=== PATIENT | male | born 1970 | race Caucasian/White ===

== ENCOUNTER 2022-09-21 17:48 | Emergency (ER) | payer BC ==
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
[2022-09-21 18:02] VITALS: TEMP 98.8
[2022-09-21] MEDS ORDERED: SODIUM CHLORIDE 0.9% 1,000 ML IV STA (19:07)
[2022-09-21] MEDS ORDERED: DICYCLOMINE 10 MG/ML 2 ML AMP IM STA (19:08)
[2022-09-21 20:08] LABS: Basophils # (A) 0.1 k/uL (0-0.2); Basophils % (A) 1 %; Eosinophils # (A) 0.2 k/uL (0-0.7); Eosinophils % (A) 2 %; HCT 46.7 % (39.0-53.0); HGB 15.8 gm/dL (13.0-17.5); Lymphocytes # (A) 2.1 k/uL (1.0-4.8); Lymphocytes % (A) 23 %; MCH 31.3 pg (25.0-35.0); MCHC 33.8 g/dL (31.0-37.0); MCV 92.5 fL (80.0-100.0); Mean Platelet Volume 7.4; Monocytes # (A) 0.6 k/uL (0-1.0); Monocytes % (A) 6 %; Neutrophils # (A) 6.4 k/uL (1.3-7.7); Neutrophils % (A) 68 %; Platelet Count 249 k/uL (150-450); RBC 5.05 m/uL (4.30-5.90); RDW 12.3 % (11.5-15.5); WBC 9.5 k/uL (3.8-10.6)
[2022-09-21 20:14] LABS: Appearance,Urine Clear (Clear); Bilirubin,Urine Negative (Negative); Blood,Urine Negative (Negative); Color,Urine Yellow; Glucose,Urine (UA) Negative (Negative); Ketones,Urine 1+ (Negative); Leukocyte Esterase,Urine Small (Negative); Mucus,Urine Occasional /hpf; Nitrite,Urine Negative (Negative); PH, Urine 5.5 (5.0-8.0); Protein,Urine Trace (Negative); RBC,Urine 3 /hpf (0-5); Specific Gravity,Urine 1.018 (1.001-1.035); Urobilinogen,Urine <2.0 mg/dL (<2.0); WBC,Urine 6 /hpf (0-5)
[2022-09-21 20:19] LABS: ALT 23 U/L (4-49); AST 24 U/L (17-59); African American GFR (CKD) >90 (>60 ml/min/1.73 sqM); Albumin 4.9 g/dL (3.5-5.0); Alkaline Phosphatase 60 U/L (38-126); Amylase 44 U/L (30-110); Anion Gap 14 mmol/L; Blood Urea Nitrogen 15 mg/dL (9-20); Calcium 9.5 mg/dL (8.4-10.2); Carbon Dioxide 21 mmol/L (22-30); Chloride 104 mmol/L (98-107); Glucose 139 mg/dL (74-99); Lipase 85 U/L (23-300); Non-African American GFR(CKD) >90 (>60 ml/min/1.73 sqM); Potassium 3.8 mmol/L (3.5-5.1); Sodium 139 mmol/L (137-145); Total Protein 7.6 g/dL (6.3-8.2)
[2022-09-21 20:27] VITALS: RESP 18
--- NOTE | 2022-09-21 20:30 | CT ---
EXAMINATION TYPE: CT abdomen pelvis w con DATE OF EXAM: 09/21/2022 COMPARISON: 1 HISTORY: abdominal pain, acute, nonlocalized. frequent urination. CT DLP: 750.4 mGycm CONTRAST: CT scan of the abdomen and pelvis is performed without Oral Contrast and with IV Contrast, patient in jected with 100ml mL of Isovue 300. FINDINGS: LUNG BASES-: No visible nodule. No infiltrate. LIVER/GB: No calcified gallstones. No space occupying hepatic lesion. Biliary tree is of normal ca liber. PANCREAS: No inflammation. No distinct mass. SPLEEN: No splenic enlargement. No lesion seen. ADRENALS: No nodule. No thickening. KIDNEYS/BLADDER: 11 mm right UPJ calculus resulting in moderate hydronephrosis. No additional calculi seen. The left kidney is unremarkable. No distinct renal mass. Urinary bladder grossly unremarkable . BOWEL: Normal appendix. Normal bowel caliber. No inflammation. GENITAL ORGANS: No gross abnormality. LYMPH NODES: No greater than 1cm abdominal or pelvic lymph nodes are appreciated. AORTA: No significant abnormality. OSSEOUS STRUCTURES: No significant abnormality is seen. OTHER: No significant additional abnormality is seen. IMPRESSION: 11 mm right UPJ calculus resulting in moderate hydronephrosis.
[2022-09-21] MEDS ORDERED: KETOROLAC 15 MG/ML 1 ML VIAL IVP STA (21:54)
[2022-09-21] MEDS ORDERED: ONDANSETRON 4 MG ODT STARTER PACK 2 TAB BTL PO STA (22:30)
[2022-09-21] MEDS ORDERED: IBUPROFEN 600 MG STARTER PACK 4 TAB BTL PO STA (22:30)
[2022-09-21] MEDS ORDERED: ACET/COD 300 MG/30 MG STARTER PACK 6 TAB BTL PO STA (22:30)
[2022-09-21 22:58] VITALS: BP 141/93; PULSE 88
[2022-09-23 13:11] LABS: Chlamydia trachomatis rRNA Not detected (Not detected); Neisseria gonorrhoeae rRNA Not detected (Not detected)
== END 2022-09-21 22:59 | disposition home or self-care (01) ==
LOC: EC 17:48
DX: N13.2 Hydronephrosis with renal and ureteral calculous obstruction (principal); F12.90 Cannabis use, unspecified, uncomplicated; Z88.0 Allergy status to penicillin; Z87.891 Personal history of nicotine dependence
CPT/HCPCS: 99284 ×2; 96374 ×2; 96361 ×3; 96372 ×2; 36415; 93005; 80053; 87491; 82150; 83605; 83690; 84484; 85025; 81001; 74177; J0500; J1885; S0119; Q9967

== ENCOUNTER → 2022-10-12 | Outpatient (CLI) | payer BC ==
[2022-10-12 20:30] LABS: Basophils # (A) 0.06 X 10*3/uL (0.00-0.10); Basophils % (A) 0.6 %; Eosinophils # (A) 0.12 X 10*3/uL (0.04-0.35); Eosinophils % (A) 1.2 %; HCT 45.2 % (39.6-50.0); HGB 15.1 d/dL (12.0-15.0); Lymphocytes # (A) 2.05 X 10*3/uL (0.90-5.00); Lymphocytes % (A) 21.2 %; MCH 30.8 pg (27.0-32.0); MCHC 33.4 d/dL (32.0-37.0); MCV 92.1 FL (80.0-97.0); Mean Platelet Volume 10.2 FL (9.5-12.2); Monocytes # (A) 0.49 X 10*3/uL (0.20-1.00); Monocytes % (A) 5.1 %; NRBC Per 100 WBC 0 X 10*3/uL (0.00-0.01); Neutrophils # (A) 6.92 X 10*3/uL (1.80-7.70); Neutrophils % (A) 71.5 %; Platelet Count 242 X 10*3/uL (140-440); RBC 4.91 X 10*6/uL (4.40-5.60); RDW 12.2 % (11.5-14.5); WBC 9.68 X 10*3/uL (4.50-10.00)
[2022-10-12 21:08] LABS: BUN/Creat Ratio 16.78 Ratio (12.00-20.00); Blood Urea Nitrogen 15.1 mg/dL (9.0-27.0); Calcium 9.5 mg/dL (8.7-10.3); Carbon Dioxide 21.1 mmol/L (21.6-31.8); Chloride 104 mmol/L (96-109); Glucose 153 mg/dL (70-110); Potassium 4.3 mmol/L (3.5-5.5); Sodium 138 mmol/L (135-145)
== END | disposition home or self-care (01) ==
LOC: LABPAT 13:14
PROVIDERS: ATTEND Urology
DX: Z01.812 Encounter for preprocedural laboratory examination (principal); N20.1 Calculus of ureter; R31.29 Other microscopic hematuria
CPT/HCPCS: 80048; 85025

== ENCOUNTER → 2022-10-19 | Day surgery (SDC) | payer BC ==
[2022-10-14 12:19] VITALS: BMI 24.4
[~2022-10-19] MED LIST: CIPROFLOXACIN/DEXTROSE PMX 400 MG in DEXTROSE/WATER 1 200ML.BAG IVPB PRN; DEXAMETHASONE SOD PHOSPHATE 4 MG/ML 1 ML VIAL IV ONE; HYDROmorphone 0.5 MG/0.5 ML SYRINGE IVP PRN; LACTATED RINGERS 1,000 ML IV SCH; LIDOCAINE 1% (10MG/ML) FOR IV START INTRADERMA PRN; METOCLOPRAMIDE 5 MG/ML 2 ML VIAL IVP PRN; ONDANSETRON 4 MG/2 ML VIAL IVP ONE
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
[2022-10-19 07:48] VITALS: BP 121/68; PULSE 74; RESP 14; TEMP 97.8
--- NOTE | 2022-10-19 08:34 | XR ---
EXAMINATION TYPE: XR KUB DATE OF EXAM: 10/19/2022 HISTORY: Pain Comparison: None.Single KUB is submitted for interpretation. Findings: Right renal calculi: 1.4 cm calculus overlying the mid to lower pole of the right kidney. Right ureteral calculi: None Visualized. Left renal calculi: None Visualized. Left ureteral calculi: None Visualized. Pelvic calcifications: Multiple calculi within the pelvis the largest measuring 7 mm. Is likely the most part reflect phlebolith formation however distal ureteral calculus is difficult to exclude. Bowel gas pattern is unremarkable. No free air. No mass effects. IMPRESSION: 1. As above
--- NOTE | 2022-10-19 09:21 | P.PN ---
Progress Note - Text Progress Note Date: 10/19/22 Patient evaluated prior to scheduled cysto/lithotripsy/indicated procedures due to large kidney stone. Patient noted to have "droop" to left side of face. Reports onset about a week ago and is "improving". Also reports right side cervical pain/cramps as well as new onset bilateral lower extremity numbness/paresthesias. Discussed with patient at length regarding Harerll's Palsy vs CVA/TIA and the need for a neurological consult and workup to rule out any neurological/vascular issues prior to an elective surgical procedure requiring a general anesthetic. Patient states his understanding. Advised to go to ER to begin evaluation process as the patient does not have a primary care doctor he sees regularly. Recently scheduled a visit to a PCP on October 29. Patient states he "will not go to the ER today because he is tired and will go home and rest and follow up with PCP on 10/29/2022". Again advised patient to begin evaluation today with ER and patient refused. Will follow up as indicated. Risks of his decision were discussed at length including possible stroke, possible Harrell's Palsy, possible increased risk of stroke/WA. Patient stated understanding but prefers to defer evaluation until 10/29/2022
== END ==
LOC: OR 06:32
PROVIDERS: ATTEND Urology
DX: N20.1 Calculus of ureter (principal); I51.7 Cardiomegaly; Z53.8 Procedure and treatment not carried out for other reasons; R29.810 Facial weakness; Z87.442 Personal history of urinary calculi; Z98.890 Other specified postprocedural states; Z87.891 Personal history of nicotine dependence; Z88.0 Allergy status to penicillin
CPT/HCPCS: 74018; 52356; J1100; J2405

== ENCOUNTER → 2022-11-04 | Outpatient (CLI) | payer BC ==
[2022-11-04 13:51] LABS: Appearance,Urine Clear (Clear); Bilirubin,Urine Negative (Negative); Blood,Urine Trace (Negative); Color,Urine Yellow; Glucose,Urine (UA) Trace (Negative); Ketones,Urine Negative (Negative); Leukocyte Esterase,Urine Trace (Negative); Mucus,Urine Occasional /hpf; Nitrite,Urine Negative (Negative); PH, Urine 5.5 (5.0-8.0); Protein,Urine Negative (Negative); RBC,Urine 4 /hpf (0-5); Squamous Epithelial Cell,Urine <1 /hpf (0-4); Urobilinogen,Urine <2.0 mg/dL (<2.0); WBC,Urine 10 /hpf (0-5)
[2022-11-04 17:00] LABS: Basophils # (A) 0.05 X 10*3/uL (0.00-0.10); Basophils % (A) 0.7 %; Eosinophils # (A) 0.07 X 10*3/uL (0.04-0.35); Eosinophils % (A) 0.9 %; HCT 43.4 % (39.6-50.0); HGB 14.7 d/dL (13.0-17.0); Lymphocytes # (A) 1.53 X 10*3/uL (0.90-5.00); Lymphocytes % (A) 20.4 %; MCH 30.4 pg (27.0-32.0); MCHC 33.9 d/dL (32.0-37.0); MCV 89.7 FL (80.0-97.0); Mean Platelet Volume 9.6 FL (9.5-12.2); Monocytes # (A) 0.44 X 10*3/uL (0.20-1.00); Monocytes % (A) 5.9 %; NRBC Per 100 WBC 0 X 10*3/uL (0.00-0.01); Neutrophils # (A) 5.38 X 10*3/uL (1.80-7.70); Neutrophils % (A) 71.8 %; Platelet Count 220 X 10*3/uL (140-440); RBC 4.84 X 10*6/uL (4.40-5.60); RDW 12.2 % (11.5-14.5); WBC 7.49 X 10*3/uL (4.50-10.00)
[2022-11-04 20:26] LABS: ALT 14 U/L (10-49); AST 13 U/L (14-35); Albumin 4.8 d/dL (3.8-4.9); Albumin/Globulin Ratio 2.67 Ratio (1.60-3.17); Alkaline Phosphatase 58 U/L (41-126); Blood Urea Nitrogen 15.7 mg/dL (9.0-27.0); Calcium 9.5 mg/dL (8.7-10.3); Carbon Dioxide 20.7 mmol/L (21.6-31.8); Chloride 105 mmol/L (96-109); Chol/HDL Ratio 4.61 Ratio; Globulin 1.8 d/dL (1.6-3.3); Glucose 239 mg/dL (70-110); LDL Cholesterol,Calculated 135.6 mg/dL (0.0-131.0); Magnesium 1.9 mg/dL (1.5-2.4); Potassium 4.2 mmol/L (3.5-5.5); Sodium 139 mmol/L (135-145); Total Bilirubin 0.7 mg/dL (0.3-1.2); Total Protein 6.6 d/dL (6.2-8.2); Uric Acid 4.4 mg/dL (3.7-8.7)
[2022-11-04 21:51] LABS: HSV I IgG Interp POSITIVE; HSV II IgG Interp Negative (Negative)
[2022-11-05 00:02] LABS: Hepatitis A Antibody IgM Nonreactive; Hepatitis B Core IgM Nonreactive; Hepatitis B Surface Antigen Nonreactive; Hepatitis C IgG Antibody Nonreactive
[2022-11-05 13:35] LABS: C. trachomatis,PCR Negative (Negative)
== END | disposition home or self-care (01) ==
LOC: LABWHC1 12:46
PROVIDERS: ATTEND Internal Medicine
DX: Z12.5 Encounter for screening for malignant neoplasm of prostate (principal); Z72.51 High risk heterosexual behavior; R29.810 Facial weakness
CPT/HCPCS: 80061; 80053; 80074; 84443; 82607; 82746; 83735; 84550; 85025; 81001; 86695; 86696; 86618; 87491; 86780; 36415; G0103

== ENCOUNTER → 2022-11-16 | Outpatient (CLI) | payer BC ==
[2022-11-16 14:20] LABS: African American GFR (CKD) >90 (>60 ml/min/1.73 sqM); Blood Urea Nitrogen 13 mg/dL (9-20); Non-African American GFR(CKD) 90 (>60 ml/min/1.73 sqM)
--- NOTE | 2022-11-16 15:35 | CT ---
EXAMINATION TYPE: CT angio head neck CT DLP: 1352.50 mGycm, Automated exposure control for dose reduction was used. DATE OF EXAM: 11/16/2022 3:20 PM COMPARISON: None. CLINICAL INDICATION:Male, 52 years old with history of R29.810; PHH, RT sided face pain and swelling after eating then followed by a rt sided facial droop TECHNIQUE: Axially acquired helical CT angiogram of the head and neck was obtained with contrast util izing 65 cc of Isovue-370 administered intravenously. Images of the head were obtained before adminis tration of contrast. Axial images are supplemented with 3D reconstructions which were post-processed at an independent workstation. NASCET criteria used. FINDINGS: CTA HEAD: No evidence of acute intracranial hemorrhage, mass effect, or midline shift. The ventricles, sulci, a nd cisterns are unremarkable. The visualized portions of the internal carotid arteries, middle cerebral arteries, anterior cerebral arteries, and posterior cerebral arteries are patent. The basilar and vertebral arteries are patent. CTA NECK: Right Carotid System: The common carotid artery and external carotid artery are patent. The carotid bifurcation demonstrate s no evidence of hemodynamically significant stenosis. The remaining portions of the internal carotid artery demonstrate normal size without significant narrowing. Left Carotid System: The common carotid artery and external carotid artery are patent. The carotid bifurcation demonstrate s no evidence of hemodynamically significant stenosis. The remaining portions of the internal carotid artery demonstrate normal size without significant narrowing. Vertebral arteries are patent without evidence hemodynamically significant stenosis. There is a three-vessel aortic arch. The origins of the great vessels are patent. No evidence of hemo dynamically significant stenosis. No abnormal extra-axial fluid collections. Ventricular system within normal limits. Cerebral parenchy ma is unremarkable without evidence of intraparenchymal hemorrhage or mass effect. The valle-white dif ferentiation is maintained. Cerebellum is unremarkable. No midline shift. Soft tissue within normal l imits. No depressed skull fracture. Left maxillary 0.9 cm likely mucous retention cyst. Visualized or bits are intact. IMPRESSION: 1. No evidence of dissection of the cervical internal carotid arteries or vertebral arteries or any e vidence of significant stenosis at the carotid bifurcations. 2. No evidence of high-grade stenosis or intracranial aneurysm.
== END | disposition home or self-care (01) ==
LOC: RADCTMAIN 13:41
PROVIDERS: ATTEND Internal Medicine
DX: R29.810 Facial weakness (principal)
CPT/HCPCS: 82565; 84520; 70496; 70498; 36415; Q9967

== ENCOUNTER → 2022-12-15 | Outpatient (CLI) | payer BC ==
[2022-12-15 21:25] LABS: Basophils # (A) 0.05 X 10*3/uL (0.00-0.10); Basophils % (A) 0.7 %; Eosinophils # (A) 0.15 X 10*3/uL (0.04-0.35); Eosinophils % (A) 2.1 %; HCT 47.6 % (39.6-50.0); HGB 15.5 d/dL (13.0-17.0); Lymphocytes # (A) 2.15 X 10*3/uL (0.90-5.00); Lymphocytes % (A) 29.6 %; MCH 30.4 pg (27.0-32.0); MCHC 32.6 d/dL (32.0-37.0); MCV 93.3 FL (80.0-97.0); Monocytes # (A) 0.52 X 10*3/uL (0.20-1.00); Monocytes % (A) 7.2 %; NRBC Per 100 WBC 0 X 10*3/uL (0.00-0.01); Neutrophils # (A) 4.37 X 10*3/uL (1.80-7.70); Neutrophils % (A) 60.1 %; Platelet Count 230 X 10*3/uL (140-440); RDW 12.8 % (11.5-14.5); WBC 7.26 X 10*3/uL (4.50-10.00)
[2022-12-15 21:28] LABS: BUN/Creat Ratio 12.27 Ratio (12.00-20.00); Blood Urea Nitrogen 13.5 mg/dL (9.0-27.0); Glucose 114 mg/dL (70-110)
[2022-12-15 21:29] LABS: Carbon Dioxide 24.4 mmol/L (21.6-31.8); Chloride 100 mmol/L (96-109); Potassium 4.5 mmol/L (3.5-5.5); Sodium 138 mmol/L (135-145)
== END | disposition home or self-care (01) ==
LOC: LABPAT 14:06
PROVIDERS: ATTEND Urology
DX: Z01.812 Encounter for preprocedural laboratory examination (principal); N20.1 Calculus of ureter; R31.0 Gross hematuria
CPT/HCPCS: 80048; 85025